=== PATIENT | male | born 1995 | race Caucasian/White ===

== ENCOUNTER 2016-06-02 17:05 | Emergency (ER) | payer OTHER ==
--- NOTE | 2016-06-02 18:19 | EDPHY ---
H & P Stated Complaint: l wrist inj HPI/ROS: Chief complaint: Left wrist injury History of present illness: This is a 20-year-old male who presents to the emergency department for left wrist injury. Patient was skiing earlier today when he fell, he broke his fall by landing onto his wrist. Since then he has and pain. There has been associated swelling. Hurts to move the wrist. He denies other associated signs or symptoms including no open wounds, no paresthesias no abnormal coolness to the left upper extremity. He can still move the digits in the hand. He denies trauma to other parts of the body. - Personal History Current Tetanus/Diphtheria Vaccine: Yes Current Tetanus Diphtheria and Acellular Pertussis (TDAP): Yes - Medical/Surgical History Hx Asthma: No Hx Chronic Respiratory Disease: No Hx Diabetes: No Hx Cardiac Disease: No Hx Renal Disease: No Hx Cirrhosis: No Hx Alcoholism: No Hx HIV/AIDS: No Hx Splenectomy or Spleen Trauma: No Other PMH: denies - Social History Smoking Status: Never smoked - Physical Exam Exam: General: Alert, nontoxic Skin: Contusion to left wrist. No open wound. Musculoskeletal: Tenderness diffusely a left wrist. He has 1 move it secondary to pain. He can move the digits left hand. Hand is nontender. The proximal forearm, left elbow, left upper extremity and shoulder nontender he has been the elbow and shoulder well. Vascular: Radial pulses 2+. Capillary refill brisk in left hand. Neurologic: Sensation intact throughout the left upper extremity. Constitutional: Initial Vital Signs Temperature (C) 36.7 C 06/02/16 17:10 Heart Rate 89 06/02/16 17:10 Blood Pressure 152/93 H 06/02/16 17:10 O2 Sat (%) 98 06/02/16 17:10 Allergies/Adverse Reactions: No Known Allergies Allergy (Unverified 06/02/16 17:10) Home Medications: Medication Instructions Recorded NK [No Known Home Meds] 06/02/16 Medical Decision Making - Diagnostics Imaging: X-ray series of the left wrist consistent with distal radius fracture, see report for complete details Procedures: Procedure: Splint placement. A sugar-tong splint was applied. After application of the splint I returned and re-examined the patient. The splint was adequately immobilizing the joint and distal to the splint the patient's circulation and sensation was intact. Patient is placed in a sling ED Course/Re-evaluation: Patient seen under the supervision of my secondary supervising physician Dr. Estefania Cowart. Patient presents to the emergency department for a left wrist injury. The left upper extremity is neurovascularly intact. By history and physical exam no evidence of trauma to other parts of the body. X-ray confirms a fracture. Patient is splinted. He declined pain medicine. He is returning home to [place] this week. He is given a copy of his x-rays. Asked to follow up with an orthopedic doctor when he returns home. Return precautions are given. Patient voiced understanding and agreement with plan. Differential Diagnosis: Included but not limited to contusion, sprain or strain, bony fracture Departure - Departure Disposition: Home, Routine, Self-Care Clinical Impression: Distal radius fracture Qualifiers: Encounter type: initial encounter Fracture type: closed Fracture morphology: unspecified fracture morphology Laterality: left Qualified Code(s): S52.502A - Unspecified fracture of the lower end of left radius, initial encounter for closed fracture Condition: Good Instructions: Wrist Fracture in Adults (ED) Additional Instructions: Follow-up with an orthopedic doctor when he returns home this week Use [id number] ibuprofen or Tylenol as directed as needed for pain If symptoms worsen or new symptoms develop return to the emergency room for recheck Referrals: NONE *PRIMARY CARE P,. [Primary Care Provider] - As per Instructions Jem Harper MD [Medical Doctor] - As per Instructions
[2016-06-02 19:17] VITALS: BP 132/71; PULSE 69; RESP 16; TEMP 97.9; O2SAT 97
== END 2016-06-02 19:17 | disposition home or self-care (01) ==
PROC: 2W3DX1Z Immobilization of Left Lower Arm using Splint (ICD-10-PCS; principal; 2016-06-02)
DX: S52.502A Unspecified fracture of the lower end of left radius, initial encounter for closed fracture (principal); V00.328A Other snow-ski accident, initial encounter; Y99.8 Other external cause status; Y93.23 Activity, snow (alpine) (downhill) skiing, snowboarding, sledding, tobogganing and snow tubing